=== PATIENT | male | born 1995 | race African-American/Black ===

== ENCOUNTER 2021-11-22 15:04 | Emergency (ER) | payer SELFPAY ==
[~2021-11-22] VITALS: Ht 175.3 cm; Wt 73.0 kg
[2021-11-22 15:08] VITALS: BP 127/93
== END 2021-11-22 20:30 | disposition left against medical advice (07) ==
LOC: ER 15:04
DX: Z53.21 Procedure and treatment not carried out due to patient leaving prior to being seen by health care provider (principal)